=== PATIENT | female | born 1945 ===

== ENCOUNTER → 2017-06-23 | Emergency (ER) | payer OTHER ==
[~2017-06-23] VITALS: Ht 162.6 cm; Wt 79.4 kg
[~2017-06-23] MED LIST: ARICEPT10 MG; LEXAPRO5 MG; LIPITOR40 MG; NAMENDA10 MG; PLAVIX75 MG; SYNTHROID88 MCG; ZESTRIL2.5 MG
== END | disposition home or self-care (01) ==
LOC: ER 16:13
DX: L03.114 Cellulitis of left upper limb (principal); M10.042 Idiopathic gout, left hand